=== PATIENT | female | born 1995 | race African-American/Black ===

== ENCOUNTER 2017-08-19 10:08 | Emergency (ER) | payer OTHER ==
[2017-08-19 10:17] VITALS: BP 119/68
--- NOTE | 2017-08-19 10:49 | UC ---
Kandi Jj Rebecca, scribed for Lillie Barone MD on 08/19/17 at 1020 . Lower Extremity/Ankle HPI - HPI Summary HPI Summary: Pt is a 22 y/o F who presents to [facility] accompanied by her mother c/o L knee and ankle pain s/p fall. Yesterday while doing roller derby the pt reports she fell frequently with one especially painful fall though she continued with the activity. Pain in the L ankle is ranked 6/10 and pain in the L knee is ranked 4/ 10, both of which are described as sharp. Has not taken anything for the pain or applied ice. Sx aggravated by exercise, movement and standing. Denies any tingling or numbness. No swelling or bruising. No paresthesias. Reports she used to play basketball so she would often roll her ankles. Confirms she has taken her daily medications. medications reviewed at this visit - History of Current Complaint Chief Complaint: UCLowerExtremity Stated Complaint: ANKLE AND KNEE INJURY Time Seen by Provider: 08/19/17 10:18 Hx Obtained From: Patient Hx Last Menstrual Period: 08/10/17 Onset/Duration: Gradual Onset, Lasting Days - Started eysterday, Still Present Severity Currently: Moderate Pain Intensity: 6 - Ankle, 4/10 knee Pain Scale Used: 0-10 Numeric Aggravating Factor(s): Standing, Ambulation, Other - Exercise, movement Alleviating Factor(s): Nothing - Allergies/Home Medications Allergies/Adverse Reactions: Allergies Allergy/AdvReac Type Severity Reaction Status Date / Time Penicillins [PCN] Allergy Unknown Verified 08/19/17 10:16 Reaction Details Home Medications: Home Medications Control 1 tab PO DAILY 08/19/17 [History Confirmed 08/19/17] Cetirizine* [ZyrTEC 10 MG TAB*] 1 tab PO DAILY 08/19/17 [History Confirmed 08/19] Fluoxetine HCl [Prozac] 30 mg PO DAILY 08/19/17 [History Confirmed 08/19/17] Melatonin 60 mg PO BEDTIME 08/19/17 [History Confirmed 08/19/17] Prazosin HCl [Minipress] 4 mg PO BEDTIME 08/19/17 [History Confirmed 08/19/17] Tretinoin [Retin-A] 1 applic TOPICAL DAILY 08/19/17 [History Confirmed 08/19/17] PMH/Surg Hx/FS Hx/Imm Hx - Additional Past Medical History Additional PMH: Negative PMHx: DM, HTN, CAD Previously Healthy: No Respiratory History: Asthma Psychological History: Post Traumatic Stress Disorder - Surgical History Surgical History: None - Family History Known Family History: Positive: Cardiac Disease, Diabetes, Other - [place] - Social History Occupation: Employed Full-time - [employer] Alcohol Use: Weekly Alcohol Amount: Weekends Substance Use Type: None Smoking Status (MU): Never Smoked Tobacco - Immunization History Most Recent Influenza Vaccination: Not UTD Review of Systems Constitutional: Negative Skin: Negative Eyes: Negative ENT: Negative Respiratory: Negative Cardiovascular: Negative Gastrointestinal: Negative Genitourinary: Negative Motor: Negative Neurovascular: Negative Musculoskeletal: Arthralgia - L knee and ankle pain Neurological: Negative Psychological: Negative All Other Systems Reviewed And Are Negative: Yes - Comments Additional Review of Systems Comments: NEGATIVE: Numbness and tingling Physical Exam Triage Information Reviewed: Yes Appearance: Well-Appearing, Well-Nourished, Pain Distress Vital Signs: Initial Vital Signs Temp 98.4 F 08/19/17 10:09 Pulse 86 08/19/17 10:09 Resp 14 08/19/17 10:09 BP 119/68 08/19/17 10:09 Pulse Ox 98 08/19/17 10:09 Eyes: Negative: Discharge ENT: Positive: Hearing grossly normal Respiratory: Positive: No respiratory distress, No accessory muscle use Cardiovascular: Positive: Other: - 2+ DP, PT CBT < 2 sec Musculoskeletal: Positive: Other: - +SLE with discomfort lateral edge patella + flex/ext knee to 45 - pain lateral knee Neg ant/post drawer Neg laxity lateral joint line testing No edema No pain along prox tib/fib + flex/ext ankle with pain medial aspect + TTP medial mal - inferior and posterior No pain along tarsals, metatarsals No crepitus Neurological: Positive: Other: - + gross sensation thorughout Skin Exam: Normal Diagnostics - Radiology Knee XR Xray Interpretation: No Acute Changes - NO ACUTE BONY CHANGE. Radiology Interpretation Completed By: Radiologist Ankle XR Xray Interpretation: No Acute Changes - NEGATIVE EXAMINATION. Radiology Interpretation Completed By: Radiologist Re-Evaluation - Re-Evaluation First Eval Re-Evaluation Time: 11:38 Comment: Discussed XR results. Lower Extremity Course/Dx - Course Course Of Treatment: Patient medications reviewed this visit. pt with left ankle, knee pain following roller derby fall yesterday evening. PT with pain medial ankle, lateral knee. will image. analgesia. ice. if neg films. sophy/ crutches/ice. work note - Differential Dx/Diagnosis Provider Diagnoses: left knee sprain. left ankle sprain Discharge - Discharge Plan Condition: Stable Disposition: HOME Patient Education Materials: Ankle Sprain (ED), Knee Sprain (ED) Forms: *Work Release Referrals: Fadi Yan MD [Primary Care Provider] - 1 Week Additional Instructions: -Okay to alternate ibuprofen (advil, Motrin) and tylenol every 3 hours for pain. Take with food. Do NOT take for more than 4-5 days - Use crutches until you can walk without pain or a limp - wear sophy wrap for support -Apply ice (20 min at a time) every 4 hours while awake today and tomorrow - Keep leg elevated - this will help with swelling and pain -contact your doctor to schedule a follow-up appointment next week. Contact your doctor or return with questions or concerns The documentation as recorded by the Kandi singer Rebecca accurately reflects the service I personally performed and the decisions made by , Lillie Barone MD.
--- NOTE | 2017-08-19 11:28 | RAD ---
INDICATION: Left ankle injury COMPARISON: None TECHNIQUE: AP, lateral, and oblique views were obtained. FINDINGS: The bony structures, joint spaces, and soft tissues are normal for age. IMPRESSION: NEGATIVE EXAMINATION.
--- NOTE | 2017-08-19 11:30 | RAD ---
INDICATION: Left knee injury COMPARISON: None TECHNIQUE: AP, lateral, tunnel, and sunrise views were obtained. FINDINGS: There is no acute bony findings. There is an ununited tibial tubercle fragment are presenting an incidental finding. The knee articulates normally. There is no joint effusion. IMPRESSION: NO ACUTE BONY CHANGE.
== END 2017-08-19 11:50 | disposition home or self-care (01) ==
LOC: UCEAST 10:08
DX: S83.92XA Sprain of unspecified site of left knee, initial encounter (principal); Z88.0 Allergy status to penicillin; W19.XXXA Unspecified fall, initial encounter; Y92.9 Unspecified place or not applicable; S93.402A Sprain of unspecified ligament of left ankle, initial encounter
CPT/HCPCS: 99214; G0463

== ENCOUNTER 2018-02-25 15:51 | Emergency (ER) | payer OTHER ==
[2018-02-25 16:00] VITALS: BP 117/78
--- NOTE | 2018-02-25 16:50 | UC ---
Throat Pain/Nasal Adrien HPI - HPI Summary HPI Summary: c/o sore throat, nasal congestion, malaise, low grade fever for 6 days. She states she had sore throat about a month ago and took the zpack, which helped her with the fever, swelling and dysphagia. She states she started having similar symptoms and has noticed some white spots on her tonsils. - History of Current Complaint Chief Complaint: UCRespiratory Stated Complaint: SORE THROAT Time Seen by Provider: 02/25/18 16:33 Hx Obtained From: Patient Hx Last Menstrual Period: 2 wks ago ?: No Onset/Duration: Gradual Onset, Lasting Days Severity: Moderate Pain Intensity: 5 Cough: Nonproductive Associated Signs & Symptoms: Positive: Dysphagia, Sinus Discomfort, Nasal Discharge, Fever - Epiglottits Risk Factors Epiglottis Risk Factors: Negative - Allergies/Home Medications Allergies/Adverse Reactions: Allergies Allergy/AdvReac Type Severity Reaction Status Date / Time Penicillins Allergy Unknown Verified 02/25/18 16:01 Reaction Details PMH/Surg Hx/FS Hx/Imm Hx Previously Healthy: Yes Psychological History: Anxiety, Depression - Surgical History Surgical History: None - Family History Known Family History: Positive: Cardiac Disease, Diabetes, Other - [place] - Social History Alcohol Use: Occasionally Alcohol Amount: Weekends Substance Use Type: None Smoking Status (MU): Never Smoked Tobacco - Immunization History Most Recent Influenza Vaccination: Not UTD Review of Systems ENT: Sore Throat, Nasal Discharge, Sinus Congestion Respiratory: Cough All Other Systems Reviewed And Are Negative: Yes Physical Exam Triage Information Reviewed: Yes Appearance: No Pain Distress, Well-Nourished, Ill-Appearing Vital Signs: Initial Vital Signs Temp 98.2 F 02/25/18 15:58 Pulse 59 02/25/18 15:58 Resp 18 02/25/18 15:58 BP 117/78 02/25/18 15:58 Pulse Ox 98 02/25/18 15:58 Vital Signs Reviewed: Yes Eyes: Positive: Conjunctiva Clear ENT: Positive: Hearing grossly normal, Pharyngeal erythema, Nasal congestion, Nasal drainage, TMs normal, Tonsillar exudate, Sinus tenderness, Uvula midline Neck: Positive: Supple, Nontender, No Lymphadenopathy Respiratory: Positive: Chest non-tender, Lungs clear, Normal breath sounds, No respiratory distress Cardiovascular: Positive: RRR, No Murmur, Pulses Normal, Brisk Capillary Refill Abdomen Description: Positive: Nontender, No Organomegaly, Soft Bowel Sounds: Positive: Present Throat Pain/Nasal Course/Dx - Course Course Of Treatment: Influenza negative, rapid strep negative. Continue oral hydration, rest, tylenol if needed. Awaiting results of pending tests. - Differential Dx/Diagnosis Provider Diagnoses: Viral syndrome. Pharyngitis Discharge - Sign-Out/Discharge Documenting (check all that apply): Discharge - Discharge Plan Condition: Stable Disposition: HOME Referrals: Fadi Yan MD [Primary Care Provider] - - Billing Disposition and Condition Condition: STABLE Disposition: HOME
[2018-02-28 19:14] LABS: N. gonorrhoeae Source THROAT
== END 2018-02-25 16:55 | disposition home or self-care (01) ==
LOC: UCEAST 15:51
DX: B34.9 Viral infection, unspecified (principal); J02.9 Acute pharyngitis, unspecified; F41.9 Anxiety disorder, unspecified; F32.9 Major depressive disorder, single episode, unspecified; Z88.0 Allergy status to penicillin
CPT/HCPCS: 87070; 87491; 87502; 87591; 87651; 99211; G0463

== ENCOUNTER 2018-03-29 07:04 | Emergency (ER) | payer OTHER ==
[2018-03-29 07:16] VITALS: BP 121/62
--- NOTE | 2018-03-29 07:29 | UC ---
Knee Pain HPI - HPI Summary HPI Summary: THE PATIENT WAS PARTICIPATING IN [employer] LAST NIGHT WHEN SHE FELL DIRECTLY ON HER RIGHT KNEE. SHE WAS WEARING A KNEE PAD. TODAY HAS INCREASED SWELLING AND DISCOMFORT. NO PREVIOUS KNEE INJURY. - History of Current Complaint Chief Complaint: UCGeneralIllness Stated Complaint: KNEE INJURY Time Seen by Provider: 03/29/18 07:16 Hx Obtained From: Patient Hx Last Menstrual Period: Ended Yesterday Onset/Duration: Sudden Onset, Lasting Hours, Still Present Severity Initially: Moderate Severity Currently: Moderate Pain Intensity: 6 Pain Scale Used: 0-10 Numeric Character: Sharp Aggravating Factor(s): Movement, Weight Bearing Alleviating Factor(s): Rest Associated Signs And Symptoms: Positive: Swelling. Negative: Redness, Numbness , Tingling - Allergies/Home Medications Allergies/Adverse Reactions: Allergies Allergy/AdvReac Type Severity Reaction Status Date / Time Penicillins Allergy Rash Verified 03/29/18 07:17 PMH/Surg Hx/FS Hx/Imm Hx Respiratory History: Asthma Psychological History: Anxiety, Post Traumatic Stress Disorder - Surgical History Surgical History: None - Family History Known Family History: Positive: Cardiac Disease, Hypertension, Diabetes, Other - [place] - Social History Alcohol Use: Occasionally Alcohol Amount: Weekends Substance Use Type: None Smoking Status (MU): Never Smoked Tobacco - Immunization History Most Recent Influenza Vaccination: Not UTD Most Recent Tetanus Shot: UTD Review of Systems Constitutional: Negative Skin: Negative Respiratory: Negative Cardiovascular: Negative Gastrointestinal: Negative Musculoskeletal: Arthralgia, Decreased ROM, Edema All Other Systems Reviewed And Are Negative: Yes Physical Exam Triage Information Reviewed: Yes Appearance: Well-Appearing, No Pain Distress, Well-Nourished Vital Signs: Initial Vital Signs Temp 98.1 F 03/29/18 07:10 Pulse 85 03/29/18 07:10 Resp 18 03/29/18 07:10 BP 121/62 03/29/18 07:10 Pulse Ox 100 03/29/18 07:10 Vital Signs Reviewed: Yes Eyes: Positive: Conjunctiva Clear ENT: Positive: Hearing grossly normal Neck: Positive: Supple Respiratory: Positive: No respiratory distress, No accessory muscle use Cardiovascular: Positive: Pulses Normal Abdomen Description: Positive: Soft Musculoskeletal: Positive: ROM Limited @ - RIGHT KNEE, Edema @ - RIGHT KNEE, Other: - RIGHT KNEE: NO JOINT LINE TENDERNESS. MILDLY TENDER TIBIAL TUBEROSITY. MCL AND LCL INTACT TO STRESS TESTING. NEG DRAWERS SIGNS. NEG MCMURRAYS. NO TENDERNESS OVER QUADRICEPS TENDON. MILDLY TENDER PATELLAR LIGAMENT. DECREASED ROM (FLEXION AND EXTENSION). Neurological: Positive: Alert Psychological: Positive: Normal Response To Family, Age Appropriate Behavior Skin: Negative: rashes Diagnostics - Radiology RIGHT KNEE XRAY Xray Interpretation: No Acute Changes Radiology Interpretation Completed By: Radiologist Knee Pain Course/Dx - Differential Dx/Diagnosis Provider Diagnoses: RIGHT KNEE CONTUSION Discharge - Sign-Out/Discharge Documenting (check all that apply): Discharge/Admit/Transfer - Discharge Plan Condition: Stable Disposition: HOME Patient Education Materials: Contusion in Adults (ED) Referrals: Luis Ledesma MD [Medical Doctor] - If Needed Fadi Yan MD [Primary Care Provider] - If Needed Additional Instructions: KNEE XRAY TODAY UNREMARKABLE. REST, ICE, COMPRESS, ELEVATE. BE SURE TO GO THROUGH SLOW RANGE OF MOTION AND STRETCHING EXERCISES DAILY YOU ARE ABLE TO PREVENT STIFFENING UP AND MAKING THE DISCOMFORT WORSE. CONTUSION: Your injury has resulted in a contusion -- a crushing of the deep tissues. No injury to important structures was detected during the physician's exam. Contusions vary in the amount of pain they cause, and in the length of time required for healing. Typically, the area will become bruised, and will remain painful to touch for two or three weeks. However, most patients are back to working and playing within a few days. After the initial period of rest and cold-packs, your symptoms (together with the doctor's recommendations) will determine how rapidly you can get back to full activity. Usually this means "do what feels okay, but don't do things that hurt." If re-examination was recommended, it's important to follow up as instructed. Call the doctor or return any time if pain increases, if swelling becomes severe, if you develop numbness or weakness in an injured extremity, or if any other alarming symptoms occur. - Billing Disposition and Condition Condition: STABLE Disposition: HOME
--- NOTE | 2018-03-29 07:45 | RAD ---
INDICATION: Right knee pain. Fall. COMPARISON: None TECHNIQUE: AP, lateral, and oblique views were obtained. FINDINGS: The bony structures, joint spaces, and soft tissues are normal for age. IMPRESSION: NEGATIVE EXAMINATION.
== END 2018-03-29 08:05 | disposition home or self-care (01) ==
LOC: UCEAST 07:04
DX: S80.01XA Contusion of right knee, initial encounter (principal); W18.30XA Fall on same level, unspecified, initial encounter; Y93.51 Activity, roller skating (inline) and skateboarding; Y92.331 Roller skating rink as the place of occurrence of the external cause; J45.909 Unspecified asthma, uncomplicated; F41.9 Anxiety disorder, unspecified; F43.10 Post-traumatic stress disorder, unspecified; Z88.0 Allergy status to penicillin
CPT/HCPCS: 99212; G0463

== ENCOUNTER 2018-04-30 17:37 | Emergency (ER) | payer OTHER ==
[2018-04-30 18:16] VITALS: BP 114/52
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
== END 2018-04-30 18:50 | disposition home or self-care (01) ==
LOC: UCEAST 17:37
DX: S06.0X0A Concussion without loss of consciousness, initial encounter (principal); X58.XXXA Exposure to other specified factors, initial encounter; Y93.51 Activity, roller skating (inline) and skateboarding; Y92.9 Unspecified place or not applicable; Y99.9 Unspecified external cause status; Z87.820 Personal history of traumatic brain injury; J45.909 Unspecified asthma, uncomplicated; Z88.0 Allergy status to penicillin; Z81.1 Family history of alcohol abuse and dependence; Z82.49 Family history of ischemic heart disease and other diseases of the circulatory system; Z83.3 Family history of diabetes mellitus; Z80.9 Family history of malignant neoplasm, unspecified
CPT/HCPCS: 99212; G0463

== ENCOUNTER 2018-06-30 10:21 | Day surgery (SDC) | payer OTHER ==
[~2018-06-30 10:21] MED LIST: Buffered Lidocaine 0.9% SYRIN* 5 ML/SYR SYRINGE INTRADERM ONE
[2018-06-30] MEDS ORDERED: Midazolam* 1 MG/ML 2 ML VIAL (2 MG) ONE (12:16)
[2018-06-30] MEDS ORDERED: Lidocaine 2% PF * 5 ML VIAL ONE ×2 (12:22→12:32)
[2018-06-30] MEDS ORDERED: fentaNYL* 50 MCG/ML 2 ML VIAL (100 MCG VIAL) ONE (12:22)
[2018-06-30] MEDS ORDERED: Propofol* 10 MG/ML 20 ML BTL IV PUSH ONE (12:22)
[2018-06-30] MEDS ORDERED: Dexamethasone IV* 4 MG/ML 1 ML (4 MG) ONE (12:33)
[2018-06-30] MEDS ORDERED: Ondansetron INJ* 2 MG/ML VIAL ONE (12:33)
[2018-06-30] MEDS ORDERED: Metoclopramide IV* 5 MG/ML 2 ML VIAL ONE (12:47)
[2018-06-30] MEDS ORDERED: Acetaminophen IV 1GM/100ML * 1,000 MG/100 ML VIAL IVPB ONE (13:06)
[2018-06-30] MEDS ORDERED: fentaNYL* 50 MCG/ML 2 ML VIAL (100 MCG VIAL) IV PRN (13:06)
[2018-06-30] MEDS ORDERED: Naloxone* 0.4 MG/ML 1 ML VIAL IV PRN (13:06)
[2018-06-30] MEDS ORDERED: Acetaminophen IV 1GM/100ML * 100 ML ONE (13:16)
[2018-06-30] MEDS ORDERED: oxyCODONE ORAL.SOLN* 5 MG/5 ML UDC ONE (13:27)
[2018-06-30 14:48] VITALS: BP 98/55
--- NOTE | 2018-07-01 01:49 | OP ---
DATE OF OPERATION: 06/30/18 - [facility] DATE OF : 89 SURGEON: Mook Campos MD PRE-OP DIAGNOSIS: Chronic tonsillitis. POST-OP DIAGNOSIS: Chronic tonsillitis. OPERATIVE PROCEDURE: Tonsillotomy and adenoidectomy under general endotracheal anesthesia. COMPLICATIONS: None. DISPOSITION: Good. SPECIMENS: Tonsils. ESTIMATED BLOOD LOSS: Minimum. DESCRIPTION OF PROCEDURE: The patient was taken to the operating room and placed in the supine position on the operating table. General anesthesia was induced and she was orotracheally intubated, turned and draped for the surgery. Mar-Mathew mouth gag was inserted, retraction was applied, suspended from Gao stand. Right tonsil was grasped, manual traction was applied. Using Bovie cautery, it was dissected along its capsule, removing it from the underlying pharyngeal musculature. Left tonsil was grasped, manual traction was applied. Again, using Bovie cautery, it was dissected along its capsule, removing it from the underlying pharyngeal musculature. Hemostasis was ensured in both tonsillar fossae using suction cautery. A red rubber catheter was threaded through the nose to retract the soft palate. Suction cautery adenoidectomy was performed. Once this was done, orogastric tube was inserted into the stomach. Stomach contents suctioned. Mar- Mathew mouth gag and red rubber catheter were released and removed. The patient tolerated this procedure well, no complications, and transferred to the recovery room in stable condition. [id number]/CPS #: [id number] [facility]
== END 2018-06-30 14:50 | disposition home or self-care (01) ==
LOC: OR 10:21
PROVIDERS: ATTEND Otolaryngology
DX: J35.01 Chronic tonsillitis (principal); G47.33 Obstructive sleep apnea (adult) (pediatric); F41.8 Other specified anxiety disorders; J45.909 Unspecified asthma, uncomplicated; F43.10 Post-traumatic stress disorder, unspecified
CPT/HCPCS: 81025; 88304; A9270-GY; J1100; J2250; J2405; J2704; J2765; J3010